=== PATIENT | female | born 1990 | race Hispanic/Latino ===

== ENCOUNTER 2021-07-03 19:15 | Inpatient (IN) | payer OTHER ==
[2021-07-03] MEDS ORDERED: Lidocaine 1% (PF) 30 ML VIAL SC PRN (22:05)
[2021-07-03] MEDS ORDERED: HYDROcodone/Acetaminophen 5/325 mg Tablet PO PRN (22:05)
[2021-07-03] MEDS ORDERED: hydrALAZINE 20 MG/ML VIAL SLOW IVP PRN (22:05)
[2021-07-03] MEDS ORDERED: Docusate 100 MG CAP PO PRN (22:05)
[2021-07-03] MEDS ORDERED: Carboprost 250 MCG/ML AMP IM PRN (22:05)
[2021-07-03] MEDS ORDERED: Ibuprofen 800 MG TAB PO PRN (22:05)
[2021-07-03] MEDS ORDERED: Ondansetron PF 4 MG/2 ML Vial IVP PRN (22:05)
[2021-07-03] MEDS ORDERED: Diphenoxylate HCl/Atropine Tablet PO PRN ×2 (22:05)
[2021-07-03] MEDS ORDERED: Methylergonovine 0.2 MG/ML VIAL IM PRN (22:05)
[2021-07-03] MEDS ORDERED: Butorphanol Tartrate 1 MG/ML VIAL SLOW IVP PRN (22:05)
[2021-07-03] MEDS ORDERED: Acetaminophen 500 MG TAB PO PRN (22:05)
[2021-07-03] MEDS ORDERED: Promethazine HCl 25 MG/ML VIAL IM PRN (22:05)
[2021-07-03] MEDS ORDERED: Misoprostol 200 MCG TAB PR PRN (22:05)
[2021-07-03 22:07] VITALS: BMI 34.4
[2021-07-03] MEDS ORDERED: Zolpidem Tartrate 5 MG TAB PO PRN (22:11)
[2021-07-03] MEDS ORDERED: NS w/ Oxytocin 30 units 500 ML IV SCH ×2 (22:15)
[2021-07-03] MEDS ORDERED: NS w/ Oxytocin 30 units 500 ML IVPB SCH (22:15)
[2021-07-03] MEDS: Misoprostol 100 MCG TAB VAG SCH (22:50)
[2021-07-03 22:53] LABS: Hemoglobin 9.5 g/dL (12.0-15.5); Mean Corpuscular HGB CONC 31.5 g/dL (32.0-36.0); Mean Corpuscular Volume 82.7 fl (81.6-98.3); Mean Platelet Volume 9.4 fl (7.4-10.4); Platelet Count 303 10x3/uL (150-450); RBC Distribution Width 17.1 % (11.5-14.5); Red Blood Cell (RBC) Count 3.65 10x6/uL (3.90-5.03); White Blood Cell (WBC) Count 11.5 10x3/uL (3.5-10.5)
[2021-07-03 23:24] LABS: Syphilis Antibody Nonreactive (Nonreactive); Syphilis Antibody Index 0.09 S/CO (<1.00 Non-Reactive)
[2021-07-03 23:24] LABS: Hep B Surf Ag Non-Reactive S/CO (NonReactive)
[2021-07-04] MEDS: Misoprostol 100 MCG TAB VAG SCH ×3 (02:35→16:08)
[2021-07-04] MEDS: Lactated Ringer's 1,000 ML IV SCH ×2 (09:24→10:17)
[2021-07-04] MEDS ORDERED: Fentanyl 2 mcg/Bup 0.1% Cadd 100 ML ONE (20:46)
[2021-07-04] MEDS ORDERED: Promethazine HCl 25 MG/ML VIAL IM PRN (21:32)
[2021-07-04] MEDS ORDERED: Hydrocerin (Eucerin) Cream 120 gm Jar TOP PRN (21:32)
[2021-07-04] MEDS ORDERED: Ondansetron PF 4 MG/2 ML Vial IVP PRN (21:32)
[2021-07-04] MEDS ORDERED: diphenhydrAMINE 50 MG/ML VIAL IVP PRN (21:32)
[2021-07-04] MEDS ORDERED: Acetaminophen 325 MG TAB PO PRN (21:32)
[2021-07-04] MEDS ORDERED: Lactated Ringer's 500 ML IV PRN (21:32)
[2021-07-04] MEDS ORDERED: ePHEDrine Sulfate 50 MG/10 ML VIAL SLOW IVP PRN (21:32)
[2021-07-04] MEDS ORDERED: Naloxone HCl 0.4 mg/ml Vial IVP PRN ×2 (21:32)
[2021-07-04] MEDS ORDERED: Fentanyl 2 mcg/Bupivacaine 0.1% Cassette 100 ML EPIDURAL SCH (21:45)
[2021-07-04] MEDS ORDERED: Communication Order-Pharmacy FS SCH (21:45)
[2021-07-05] MEDS ORDERED: Methylergonovine 0.2 MG/ML VIAL IM PRN (07:13)
[2021-07-05] MEDS ORDERED: diphenhydrAMINE 25 MG CAP PO PRN (07:13)
[2021-07-05] MEDS ORDERED: Lanolin Ointment 7 GM TUBE TOP PRN (07:13)
[2021-07-05] MEDS ORDERED: hydrALAZINE 20 MG/ML VIAL SLOW IVP PRN (07:13)
[2021-07-05] MEDS ORDERED: Milk Of Magnesia 30 ML UDCUP PO PRN (07:13)
[2021-07-05] MEDS ORDERED: HYDROcodone/Acetaminophen 5/325 mg Tablet PO PRN (07:13)
[2021-07-05] MEDS ORDERED: Zolpidem Tartrate 5 MG TAB PO PRN (07:13)
[2021-07-05] MEDS ORDERED: Promethazine HCl 25 MG/ML VIAL IM PRN (07:13)
[2021-07-05] MEDS ORDERED: Ondansetron PF 4 MG/2 ML Vial IVP PRN (07:13)
[2021-07-05] MEDS ORDERED: Measles/Mumps/Rubella 10 MCG/0.5 ML VIAL SC ONE (07:13)
[2021-07-05] MEDS ORDERED: Preparation H Ointment 28 GM TUBE PR PRN (07:13)
[2021-07-05] MEDS ORDERED: Bisacodyl 10 MG SUPP PR PRN (07:13)
[2021-07-05] MEDS ORDERED: Benzocaine-Menthol 82.5 ML CAN TOP PRN (07:13)
[2021-07-05] MEDS ORDERED: Misoprostol 200 MCG TAB VAG PRN (07:13)
[2021-07-05] MEDS ORDERED: NS w/ Oxytocin 30 units 500 ML IV SCH (07:13)
[2021-07-05] MEDS: Prenatal Vitamin 1 TAB PO SCH (08:06)
[2021-07-05] MEDS: Docusate Calcium (SURFAK) 240 MG CAP PO SCH ×2 (08:06→21:31)
[2021-07-05] MEDS: HYDROcodone/Acetaminophen 5/325 mg Tablet PO PRN (08:07)
[2021-07-05] MEDS: Ferrous Sulfate 325 MG TAB PO SCH ×2 (08:10→17:07)
[2021-07-05] MEDS: Ibuprofen 800 MG TAB PO SCH ×2 (13:41→21:31)
[2021-07-06] MEDS: Ibuprofen 800 MG TAB PO SCH ×3 (05:06→21:12)
[2021-07-06 05:53] LABS: Mean Corpuscular HGB CONC 31.9 g/dL (32.0-36.0); Mean Corpuscular Hemoglobin 26.4 pg (27.0-33.0); Mean Corpuscular Volume 82.8 fl (81.6-98.3); Mean Platelet Volume 9.6 fl (7.4-10.4); Platelet Count 254 10x3/uL (150-450); RBC Distribution Width 17.1 % (11.5-14.5); Red Blood Cell (RBC) Count 3.03 10x6/uL (3.90-5.03); White Blood Cell (WBC) Count 12.7 10x3/uL (3.5-10.5)
[2021-07-06] MEDS ORDERED: Boostrix 0.5 ML (Tdap) VIAL IM ONE (07:13)
[2021-07-06] MEDS ORDERED: Varicella virus, LIVE 0.5 ML VIAL SC ONE (07:13)
[2021-07-06] MEDS: Docusate Calcium (SURFAK) 240 MG CAP PO SCH ×2 (09:10→21:11)
[2021-07-06] MEDS: Prenatal Vitamin 1 TAB PO SCH (09:10)
[2021-07-06] MEDS: Ferrous Sulfate 325 MG TAB PO SCH ×2 (09:11→18:05)
[2021-07-07] MEDS: Ibuprofen 800 MG TAB PO SCH (05:12)
[2021-07-07 08:02] VITALS: TEMP 97.6
[2021-07-07] MEDS: Docusate Calcium (SURFAK) 240 MG CAP PO SCH (08:22)
[2021-07-07] MEDS: Ferrous Sulfate 325 MG TAB PO SCH (08:22)
[2021-07-07] MEDS: Prenatal Vitamin 1 TAB PO SCH (08:22)
[2021-07-07 10:22] VITALS: BP 125/67
[2021-07-07] MEDS: HYDROcodone/Acetaminophen 5/325 mg Tablet PO PRN (13:24)
== END 2021-07-07 13:50 | disposition home or self-care (01) | DRG 807 ==
LOC: CSHLD 19:18 → CSHPP 07-05 06:45
PROVIDERS: ADMIT Obstetrics & Gynecology; ATTEND Obstetrics & Gynecology
PROC: 10E0XZZ Delivery of Products of Conception, External Approach (ICD-10-PCS; principal; 2021-07-05)
PROC: 0KQM0ZZ Repair Perineum Muscle, Open Approach (ICD-10-PCS; 2021-07-05)
PROC: 3E033VJ Introduction of Other Hormone into Peripheral Vein, Percutaneous Approach (ICD-10-PCS; 2021-07-05)
PROC: 3E0DXGC Introduction of Other Therapeutic Substance into Mouth and Pharynx, External Approach (ICD-10-PCS; 2021-07-05)
DX: O70.1 Second degree perineal laceration during delivery (principal); Z37.0 Single live birth; Z3A.39 39 weeks gestation of pregnancy
CPT/HCPCS: 36415; 51702; 85027; 86780; 86850; 86900; 86901; 87340; 99285; J2590; J7120